=== PATIENT | male | born 1950 | race Caucasian/White ===

== ENCOUNTER 2017-05-06 07:14 | Outpatient (CLI) | payer OTHER | END 2017-05-06 07:23 | disposition home or self-care (01) | LOC: RX STUDY 07:14 | DX: K21.9 Gastro-esophageal reflux disease without esophagitis (principal) ==

== ENCOUNTER 2017-05-06 07:26 | Outpatient (CLI) | payer OTHER | END 2017-05-06 07:29 | disposition home or self-care (01) | LOC: SONOGRAMA 07:26 → MAMO-SONO 07:45 | DX: E04.9 Nontoxic goiter, unspecified (principal) ==